=== PATIENT | female | born 1940 | race Caucasian/White ===

== ENCOUNTER 2018-10-07 11:44 | Inpatient (IN) | payer MEDICARE, OTHER ==
[~2018-10-07] VITALS: Ht 160 cm; Wt 54.0 kg
[~2018-10-07 11:44] MED LIST: DET2LAC PO; DIPH25CA83 PO; GLYC1SUP77 RC; LEVO125T PO; LORA10TA65 PO; LUBI24CA5 PO; METH5TAB2 PO; POLY119P2 PO; SUMA25TA35 PO
[2018-10-07] MEDS ORDERED: ondansetron/PF 4mg/2ml inj IV ONE (12:25)
[2018-10-07] MEDS ORDERED: fentaNYL/PF 50MCG/1 ML 2ML syringe IV ONE ×2 (12:25→13:50)
[2018-10-07 12:36] LABS: BASOPHILS % (AUTO) 0.2 % (0-1); EOSINOPHILS % (AUTO) 0 % (0-6); HEMATOCRIT 44.8 % (35.0-45.0); HEMOGLOBIN 14.6 g/dl (12.0-16.0); LYMPHOCYTES # (AUTO) 0.8 X10'3 (1.1-4.8); LYMPHOCYTES % (AUTO) 6.5 % (21-51); MEAN CORPUSCULAR HEMOGLOBIN 28.8 PG (27.0-31.0); MEAN CORPUSCULAR HGB CONC 32.5 g/dL (33.0-36.5); MEAN CORPUSCULAR VOLUME 88.7 FL (78-98); MEAN PLATELET VOLUME 9.7 FL (7.4-10.4); MONOCYTES # (AUTO) 0.8 X10'3 (0-0.9); NEUTROPHILS # (AUTO) 10.9 X10'3 (1.8-7.7); NEUTROPHILS % (AUTO) 87.3 % (42-75); PLATELET COUNT 309 X10'3 (140-440); RED BLOOD COUNT 5.06 X10'6 (4.20-5.60); RED CELL DISTRIBUTION WIDTH 16.4 % (11.5-14.5); WHITE BLOOD COUNT 12.5 X10'3 (4.5-11.0)
[2018-10-07 12:50] LABS: INR 1.1 INR
[2018-10-07 12:56] LABS: ALANINE AMINOTRANSFERASE 19 U/L (12-78); ALBUMIN 2.7 G/DL (3.4-5.0); ALBUMIN/GLOBULIN RATIO 0.4 (1.1-1.5); ALKALINE PHOSPHATASE 57 IU/L (46-116); ANION GAP 7 (8-16); ASPARTATE AMINO TRANSFERASE 22 U/L (10-37); BILIRUBIN,TOTAL 0.6 MG/DL (0.1-1.0); BLOOD UREA NITROGEN 27 MG/DL (7-18); CALCIUM 10.3 MG/DL (8.5-10.1); CHLORIDE 99 MMOL/L (99-107); CREATININE 0.93 MG/DL (0.40-0.90); GLUCOSE 125 MG/DL (70-104); LIPASE 104 U/L (73-393); POTASSIUM 3.7 MMOL/L (3.5-5.1); SODIUM 136 MMOL/L (135-145); TOTAL CARBON DIOXIDE 30.4 MMOL/L (24-32); eGFR 58 ML/MIN
--- NOTE | 2018-10-07 13:10 | NUR ---
TO CT SCAN
[2018-10-07 13:38] LABS: COLOR,URINE YELLOW (Yellow); GLUCOSE, URINE NEGATIVE (Neg); KETONES,URINE 15 mg/dl (Neg); LEUKOCYTE ESTERASE ,URINE TRACE (Neg); NITRITES, URINE NEGATIVE (Neg); OCCULT BLOOD,URINE LARGE (Neg); PH,URINE 5.5 (4.8-8.0); PROTEIN,URINE TRACE mg/dl (Neg); UROBILINOGEN,URINE 0.2 E.U/dL (0.2-1.0)
[2018-10-07 13:44] LABS: CLARITY,URINE SLIGHTLY CLOUDY (Clear); UA COLLECTION TYPE VOIDED
[2018-10-07 13:46] LABS: BACTERIA,URINE 2+ /HPF (Neg); FINE GRANULAR CAST 0-3 /LPF (NEGATIVE); MUCUS STRANDS MODERATE /LPF (Neg); SQUAMOUS EPITHELIAL CELL,UR FEW /LPF (FEW)
[2018-10-07] MEDS ORDERED: normal saline 1000ML IV soln IVB ONE (13:50)
[2018-10-07] MEDS ORDERED: normal saline 1000ml 1,000 ML IV ONE (14:15)
[2018-10-07] MEDS ORDERED: MIRA50TA PO (15:13)
[2018-10-07] MEDS ORDERED: MULT-1085 PO (15:13)
[2018-10-07] MEDS ORDERED: DILT120C51 PO (15:13)
[2018-10-07] MEDS ORDERED: NALO25TA PO (15:13)
[2018-10-07] MEDS ORDERED: METH-603 PO (15:13)
[2018-10-07] MEDS ORDERED: LISI-600 PO (15:13)
[2018-10-07] MEDS: normal saline 1000ml 1,000 ML IV SCH (15:13)
[2018-10-07] MEDS ORDERED: potassium Cl 20 mEq SR tablet PO PRN (15:15)
[2018-10-07] MEDS ORDERED: magnesium 4gm in 100ml NS 100 ML IV PRN (15:15)
[2018-10-07] MEDS ORDERED: HYDROcodone/acetaminophen 10/325mg tab PO PRN (15:15)
[2018-10-07] MEDS ORDERED: potassium Cl 40MEQ/NS 500ml 500 ML IV PRN ×2 (15:15)
[2018-10-07] MEDS ORDERED: mag hydrox/Alum hydrox/simeth 30ml oral suspension PO PRN (15:15)
[2018-10-07] MEDS ORDERED: acetaminophen 325mg tablet PO PRN (15:15)
[2018-10-07] MEDS ORDERED: HYDROcodone/acetaminophen 5mg/325mg tablet PO PRN (15:15)
[2018-10-07] MEDS ORDERED: ondansetron/PF 4mg/2ml inj IV PRN (15:15)
[2018-10-07] MEDS ORDERED: magnesium Cl slow-release 64mg tablet PO PRN (15:15)
[2018-10-07] MEDS ORDERED: morphine 2 MG/ML inj. syringe IV PRN ×2 (15:15)
[2018-10-07] MEDS ORDERED: magnesium 2GM in 50ml NS 50 ML IV PRN (15:15)
[2018-10-07] MEDS ORDERED: fentaNYL/PF 50MCG/1 ML 2ML syringe IV PRN (15:45)
[2018-10-07] MEDS ORDERED: ciprofloxacin lact 400MG/200ML 200 ML IV SCH (16:02)
[2018-10-07] MEDS: metroNIDAZOLE-Flagyl 500mg/NS 100 ML IV SCH (16:37)
[2018-10-07] MEDS: ciprofloxacin lact 400MG/200ML 200 ML IV SCH ×2 (18:01→21:46)
--- NOTE | 2018-10-07 18:09 | NUR ---
PATIENT WISHES TO REMAIN IN HER OWN CLOTHES
--- NOTE | 2018-10-07 19:02 | NUR ---
attempted to call report, radha resendiz unavailable to take report, will call back
--- NOTE | 2018-10-07 19:15 | NUR ---
PHONE REPORT TO [facility], PATIENT TO GO IN [facility] [place] TO ROOM [address] WITH ALL BELONGINGS WITH EVERETT VEGA
--- NOTE | 2018-10-07 19:15 | NUR ---
Patient in room [facility]. I have received report from CHRIS PORRAS RN and had the opportunity to ask questions and will assume patient care upon arrival to the floor Addendum: 10/07/18 at 2017 by Sybil Collins RN Amended: Links added.
--- NOTE | 2018-10-07 19:35 | NUR ---
pt arrived on gurney accompanied by her friend set up in bed and top changed into a gown.
[2018-10-07] MEDS: heparin, porcine 5000 units/ml vial SQ SCH (20:00)
[2018-10-07 20:30] VITALS: BP 141/55
[2018-10-07] MEDS: diltiazem SR 60mg capsule (twice daily) PO SCH (20:32)
[2018-10-07] MEDS ORDERED: temazepam 15mg capsule PO PRN (21:00)
--- NOTE | 2018-10-07 23:24 | NUR ---
attempt new iv start without success. Gunner nursing irrigation supervisor in room to start iv. veins rolling
[2018-10-08] VITALS: BP 142/55
[2018-10-08] MEDS: metroNIDAZOLE-Flagyl 500mg/NS 100 ML IV SCH ×2 (00:04→08:54)
[2018-10-08] MEDS: normal saline 1000ml 1,000 ML IV SCH ×3 (01:13→16:41)
--- NOTE | 2018-10-08 01:30 | NUR ---
pt resting eyes closed without s&s of distress at this time.
--- NOTE | 2018-10-08 03:30 | NUR ---
pt awoke and follow up teaching done regarding bowel obstruction and treatment of.
--- NOTE | 2018-10-08 05:07 | NUR ---
awoke briefly with iv fluid change. no complaints no bm
[2018-10-08 05:31] LABS: BASOPHILS % (AUTO) 0.4 % (0-1); EOSINOPHILS # (AUTO) 0.1 X10'3 (0-0.9); EOSINOPHILS % (AUTO) 0.6 % (0-6); HEMATOCRIT 34.5 % (35.0-45.0); HEMOGLOBIN 11.2 g/dl (12.0-16.0); LYMPHOCYTES # (AUTO) 1.4 X10'3 (1.1-4.8); LYMPHOCYTES % (AUTO) 14.6 % (21-51); MEAN CORPUSCULAR HEMOGLOBIN 29.4 PG (27.0-31.0); MEAN CORPUSCULAR HGB CONC 32.6 g/dL (33.0-36.5); MEAN CORPUSCULAR VOLUME 90.3 FL (78-98); MEAN PLATELET VOLUME 10.2 FL (7.4-10.4); MONOCYTES # (AUTO) 1.2 X10'3 (0-0.9); MONOCYTES % (AUTO) 12.4 % (2-12); NEUTROPHILS # (AUTO) 6.7 X10'3 (1.8-7.7); PLATELET COUNT 202 X10'3 (140-440); RED BLOOD COUNT 3.82 X10'6 (4.20-5.60); RED CELL DISTRIBUTION WIDTH 16.1 % (11.5-14.5); WHITE BLOOD COUNT 9.3 X10'3 (4.5-11.0)
[2018-10-08 05:58] LABS: ALANINE AMINOTRANSFERASE 17 U/L (12-78); ALBUMIN 2.1 G/DL (3.4-5.0); ALBUMIN/GLOBULIN RATIO 0.5 (1.1-1.5); ALKALINE PHOSPHATASE 39 IU/L (46-116); ANION GAP 6 (8-16); ASPARTATE AMINO TRANSFERASE 21 U/L (10-37); BILIRUBIN,TOTAL 0.6 MG/DL (0.1-1.0); BLOOD UREA NITROGEN 17 MG/DL (7-18); BUN/CREATININE RATIO 22.4 (6.6-38.0); CALCIUM 8.8 MG/DL (8.5-10.1); CHLORIDE 106 MMOL/L (99-107); CREATININE 0.76 MG/DL (0.40-0.90); GLUCOSE 94 MG/DL (70-104); MAGNESIUM 1.6 MG/DL (1.5-2.4); POTASSIUM 3.4 MMOL/L (3.5-5.1); SODIUM 139 MMOL/L (135-145); TOTAL CARBON DIOXIDE 27.5 MMOL/L (24-32); TOTAL PROTEIN 6.4 G/DL (6.4-8.2); eGFR 74 ML/MIN
--- NOTE | 2018-10-08 06:46 | NUR ---
Problems reprioritized. Patient report given, questions answered & plan of care reviewed with ADIEL VEGA. Addendum: 10/08/18 at 0647 by Sybil Collins RN Amended: Links added.
--- NOTE | 2018-10-08 06:49 | NUR ---
Problems reprioritized. Patient report given, questions answered & plan of care reviewed with ADIEL VEGA. Addendum: 10/08/18 at 0649 by Sybil Collins RN Amended: Links added.
--- NOTE | 2018-10-08 06:55 | NUR ---
Patient in room [facility]. I have received report from GARY Devine and had the opportunity to ask questions and assume patient care.
[2018-10-08 07:35] VITALS: BP 129/53
[2018-10-08] MEDS: heparin, porcine 5000 units/ml vial SQ SCH ×2 (08:00→20:00)
[2018-10-08] MEDS: levoTHYROXINE 125mcg tablet PO SCH (08:51)
[2018-10-08] MEDS: methadone 10mg tablet PO SCH (08:51)
[2018-10-08] MEDS: lisinopril 10 MG tablet PO SCH (08:52)
[2018-10-08] MEDS: pantoprazole 40mg Tablet.DR PO SCH (08:52)
[2018-10-08] MEDS: diltiazem SR 60mg capsule (twice daily) PO SCH (08:53)
[2018-10-08] MEDS: potassium Cl 20 mEq SR tablet PO PRN ×2 (08:58→12:40)
[2018-10-08] MEDS: K and/or MAG REPLACEMENT MC SCH (08:59)
[2018-10-08 12:00] VITALS: BP 123/53
[2018-10-08] MEDS ORDERED: magnesium hydroxide 30ml (MOM) UD suspension PO PRN (12:00)
[2018-10-08] MEDS ORDERED: mineral oil 133ml enema RC PRN (12:00)
--- NOTE | 2018-10-08 12:25 | NUR ---
Malnutrition consult: Pt admit w/ abdominal pain CT revealed distended small bowel loops ileus vs obstruction. Pt currently NPO w/ NG placed; output pending. Pt has no edema/wounds, weakness, or significant wt loss hx at this time and does not meet malnutrition criteria. Will continue to monitor. Addendum: 10/08/18 at [address] Amended: Links added.
[2018-10-08] MEDS ORDERED: glycerin ADULT rectal suppository RC PRN (16:25)
[2018-10-08] MEDS: metroNIDAZOLE 500mg tablet PO SCH ×2 (16:41→23:28)
[2018-10-08] MEDS ORDERED: methylnaltrexone br 12mg/0.6ml inj***SubQ only SQ SCH (16:47)
[2018-10-08] MEDS: mirabegron 25mg ER tablet PO SCH (16:50)
[2018-10-08] MEDS: acetaminophen 325mg tablet PO PRN ×2 (17:55→23:28)
--- NOTE | 2018-10-08 18:50 | NUR ---
Problems reprioritized. Patient report given, questions answered & plan of care reviewed with GARY Devine.
--- NOTE | 2018-10-08 19:00 | NUR ---
Patient in room [facility]. I have received report from ADIEL VEGA and had the opportunity to ask questions and assume patient care. Addendum: 10/08/18 at 1901 by Sybil Collins RN Amended: Links added.
--- NOTE | 2018-10-08 19:01 | NUR ---
PT HAD 2 VERY LARGE BM'S AND HAS SMALL AMOUNT LOOSE STOOL AFTER THAT.
[2018-10-08 19:27] VITALS: BP 138/60
[2018-10-08] MEDS: ciprofloxacin lact 400MG/200ML 200 ML IV SCH (20:32)
[2018-10-08] MEDS: lactobacillus rhamnosus 10,000 MMU CELLS/CAPSULE PO SCH (20:32)
--- NOTE | 2018-10-08 21:00 | NUR ---
pt given water and friend had just left.
--- NOTE | 2018-10-08 23:16 | NUR ---
pt up ambulating in the room and medicated per request for sleep and med given to her for this.
--- NOTE | 2018-10-08 23:21 | NUR ---
pt c/o headache coming back on and tylenol obtained for this.
[2018-10-09] VITALS: BP 175/66
--- NOTE | 2018-10-09 00:32 | NUR ---
resting without changes
--- NOTE | 2018-10-09 02:30 | NUR ---
resting eyes closed no changes.
[2018-10-09] MEDS: normal saline 1000ml 1,000 ML IV SCH (04:59)
[2018-10-09 05:28] LABS: BASOPHILS % (AUTO) 0.6 % (0-1); EOSINOPHILS # (AUTO) 0.2 X10'3 (0-0.9); EOSINOPHILS % (AUTO) 3.1 % (0-6); HEMATOCRIT 33.9 % (35.0-45.0); HEMOGLOBIN 11.1 g/dl (12.0-16.0); LYMPHOCYTES # (AUTO) 1.3 X10'3 (1.1-4.8); LYMPHOCYTES % (AUTO) 22.9 % (21-51); MEAN CORPUSCULAR HEMOGLOBIN 29.7 PG (27.0-31.0); MEAN CORPUSCULAR HGB CONC 32.9 g/dL (33.0-36.5); MEAN CORPUSCULAR VOLUME 90.2 FL (78-98); MEAN PLATELET VOLUME 9.9 FL (7.4-10.4); MONOCYTES # (AUTO) 0.8 X10'3 (0-0.9); MONOCYTES % (AUTO) 14.9 % (2-12); NEUTROPHILS # (AUTO) 3.3 X10'3 (1.8-7.7); NEUTROPHILS % (AUTO) 58.5 % (42-75); PLATELET COUNT 191 X10'3 (140-440); RED BLOOD COUNT 3.75 X10'6 (4.20-5.60); RED CELL DISTRIBUTION WIDTH 16.2 % (11.5-14.5); WHITE BLOOD COUNT 5.6 X10'3 (4.5-11.0)
--- NOTE | 2018-10-09 05:49 | NUR ---
resting no changes.
[2018-10-09 05:54] LABS: ALANINE AMINOTRANSFERASE 16 U/L (12-78); ALBUMIN 2.2 G/DL (3.4-5.0); ALBUMIN/GLOBULIN RATIO 0.5 (1.1-1.5); ALKALINE PHOSPHATASE 40 IU/L (46-116); ANION GAP 9 (8-16); ASPARTATE AMINO TRANSFERASE 25 U/L (10-37); BILIRUBIN,TOTAL 0.4 MG/DL (0.1-1.0); BLOOD UREA NITROGEN 10 MG/DL (7-18); BUN/CREATININE RATIO 15.4 (6.6-38.0); CALCIUM 8.7 MG/DL (8.5-10.1); CHLORIDE 107 MMOL/L (99-107); CREATININE 0.65 MG/DL (0.40-0.90); GLUCOSE 96 MG/DL (70-104); MAGNESIUM 1.8 MG/DL (1.5-2.4); POTASSIUM 3.6 MMOL/L (3.5-5.1); SODIUM 141 MMOL/L (135-145); TOTAL CARBON DIOXIDE 25.2 MMOL/L (24-32); TOTAL PROTEIN 6.4 G/DL (6.4-8.2); eGFR 88 ML/MIN
--- NOTE | 2018-10-09 06:09 | NUR ---
Problems reprioritized. Patient report given, questions answered & plan of care reviewed with LAUREN VEGA. Addendum: 10/09/18 at 0610 by Sybil Collins RN Amended: Links added.
[2018-10-09 07:00] VITALS: BP 163/67
[2018-10-09] MEDS: K and/or MAG REPLACEMENT MC SCH (07:27)
[2018-10-09] MEDS: ciprofloxacin lact 400MG/200ML 200 ML IV SCH (07:30)
[2018-10-09] MEDS ORDERED: lisinopril 10 MG tablet PO SCH (08:00)
[2018-10-09] MEDS ORDERED: diltiazem CD 120mg capsule (once-daily) PO SCH (08:00)
[2018-10-09] MEDS ORDERED: methadone 10mg tablet PO SCH (08:00)
[2018-10-09] MEDS ORDERED: polyethylene glycol 3350 17gm powd pack PO SCH (08:00)
[2018-10-09] MEDS: mirabegron 25mg ER tablet PO SCH (08:00)
[2018-10-09] MEDS: metroNIDAZOLE 500mg tablet PO SCH (10:03)
[2018-10-09] MEDS: methadone 10mg tablet PO SCH (10:03)
[2018-10-09] MEDS: lactobacillus rhamnosus 10,000 MMU CELLS/CAPSULE PO SCH (10:03)
[2018-10-09] MEDS: levoTHYROXINE 125mcg tablet PO SCH (10:04)
[2018-10-09] MEDS: heparin, porcine 5000 units/ml vial SQ SCH (10:04)
[2018-10-09] MEDS: lisinopril 10 MG tablet PO SCH (10:04)
[2018-10-09] MEDS: pantoprazole 40mg Tablet.DR PO SCH (10:06)
[2018-10-09 11:28] VITALS: BP 178/73
--- NOTE | 2018-10-09 14:36 | NUR ---
pt discharged with all belongings. PIV dc'd with cathalon intact.
== END 2018-10-09 14:45 | disposition home or self-care (01) | DRG 392 ==
LOC: ER 11:45 → CMPBEDREQ 19:56 → SUR 3N 19:59
PROVIDERS: ADMIT Internal Medicine; ATTEND Internal Medicine
DX: K59.03 Drug induced constipation (principal); R18.8 Other ascites; E83.52 Hypercalcemia; I10 Essential (primary) hypertension; G89.4 Chronic pain syndrome; D86.9 Sarcoidosis, unspecified; I25.10 Atherosclerotic heart disease of native coronary artery without angina pectoris; T50.995A Adverse effect of other drugs, medicaments and biological substances, initial encounter; F11.90 Opioid use, unspecified, uncomplicated; Z96.659 Presence of unspecified artificial knee joint; I25.2 Old myocardial infarction; Z90.49 Acquired absence of other specified parts of digestive tract; Z88.2 Allergy status to sulfonamides; Z88.8 Allergy status to other drugs, medicaments and biological substances; Z86.74 Personal history of sudden cardiac arrest; Z80.3 Family history of malignant neoplasm of breast; Z82.49 Family history of ischemic heart disease and other diseases of the circulatory system; Y92.89 Other specified places as the place of occurrence of the external cause
CPT/HCPCS: 36415; 74176; 80053; 81001; 83690; 83735; 84443; 85025; 85610; 87070; 87077; 87088; 87186; 93005; 96374; 96375; 96376; 99285; G0378; J0744; J1644; J2405; J3010; J3490; J7030

== ENCOUNTER 2022-10-18 12:48 | Emergency (ER) | payer MEDICARE, BC ==
[~2022-10-18] VITALS: Ht 160 cm; Wt 50.9 kg
[~2022-10-18 12:48] MED LIST changes: +ACET-1 PO; -DET2LAC PO; +DILT-35 PO; -DIPH25CA83 PO; +GABA-530 PO; -GLYC1SUP77 RC; -LEVO125T PO; +LEVO125T8 PO; +LISI20TA28 PO; -LORA10TA65 PO; -LUBI24CA5 PO; +MAGN500C4 PO; -METH5TAB2 PO; +METO-467 PO; +MULT-1085 PO; -POLY119P2 PO; -SUMA25TA35 PO; +TRAM50TA2 PO; +ZOLP5TAB8 PO
[2022-10-18 13:02] LABS: BASOPHILS % (AUTO) 0.4 % (0-1); EOSINOPHILS # (AUTO) 0.1 X10'3 (0-0.9); EOSINOPHILS % (AUTO) 0.6 % (0-6); HEMATOCRIT 42.4 % (35.0-45.0); LYMPHOCYTES # (AUTO) 1.4 X10'3 (1.1-4.8); LYMPHOCYTES % (AUTO) 17.5 % (21-51); MEAN CORPUSCULAR HEMOGLOBIN 31.7 PG (27.0-31.0); MEAN CORPUSCULAR HGB CONC 33.1 g/dL (33.0-36.5); MEAN CORPUSCULAR VOLUME 95.9 FL (78-98); MEAN PLATELET VOLUME 9.2 FL (7.4-10.4); MONOCYTES # (AUTO) 0.8 X10'3 (0-0.9); MONOCYTES % (AUTO) 9.6 % (2-12); NEUTROPHILS # (AUTO) 5.6 X10'3 (1.8-7.7); NEUTROPHILS % (AUTO) 71.9 % (42-75); PLATELET COUNT 247 X10'3 (140-440); RED BLOOD COUNT 4.43 X10'6 (4.20-5.60); RED CELL DISTRIBUTION WIDTH 14.9 % (11.5-14.5); WHITE BLOOD COUNT 7.8 X10'3 (4.5-11.0)
[2022-10-18 13:19] LABS: ALANINE AMINOTRANSFERASE 28 U/L (12-78); ALBUMIN 2.9 G/DL (3.4-5.0); ALBUMIN/GLOBULIN RATIO 0.5 (1.1-1.5); ALKALINE PHOSPHATASE 72 IU/L (46-116); ANION GAP 7 (8-16); ASPARTATE AMINO TRANSFERASE 43 U/L (10-37); BILIRUBIN,TOTAL 0.5 MG/DL (0.1-1.0); BLOOD UREA NITROGEN 22 MG/DL (7-18); BUN/CREATININE RATIO 27.5 (10.0-20.0); CALCIUM 10.5 MG/DL (8.5-10.1); CHLORIDE 98 MMOL/L (99-107); GLUCOSE 156 MG/DL (70-104); POTASSIUM 4.3 MMOL/L (3.5-5.1); SODIUM 136 MMOL/L (135-145); TOTAL CARBON DIOXIDE 30.7 MMOL/L (24-32); TOTAL PROTEIN 9.1 G/DL (6.4-8.2); eGFR 69 ML/MIN
[2022-10-18] MEDS ORDERED: normal saline 1000ML IV soln IVB ONE (13:25)
[2022-10-18 13:27] LABS: MAGNESIUM 2.2 MG/DL (1.5-2.4)
[2022-10-18 15:46] VITALS: BP 168/100
== END 2022-10-18 15:58 | disposition home or self-care (01) ==
LOC: ER 12:48
DX: I47.1 Supraventricular tachycardia (principal); E86.0 Dehydration; I11.0 Hypertensive heart disease with heart failure; G89.29 Other chronic pain; M54.9 Dorsalgia, unspecified; Z90.49 Acquired absence of other specified parts of digestive tract; Z88.2 Allergy status to sulfonamides; Z88.5 Allergy status to narcotic agent; Z79.899 Other long term (current) drug therapy
CPT/HCPCS: 36415; 71045; 80053; 83735; 83880; 84484; 85025; 93005; 96360; 99285; J7030